=== PATIENT | male | born 1945 | race Caucasian/White ===

== ENCOUNTER 2021-05-01 09:51 | Inpatient (IN) ==
[2021-05-01] MEDS ORDERED: 0.9 % Sodium Chloride 500 ML IVC ONE (09:57)
[2021-05-01 10:24] LABS: Basophils % 0.4 %; Eosinophils # 0.4 K/mcL (0.0-0.6); Eosinophils % 4.3 %; Hematocrit 34.4 % (37.5-50.1); Hemoglobin 10.8 g/dL (12.9-16.9); Immature Granulocytes % 1.4 % (0-4); Lymphocytes # 0.7 K/mcL (0.6-4.6); Lymphocytes % 7.2 %; Mean Corpuscular HGB Conc 31.4 g/dL (31.6-35.5); Mean Corpuscular Hemoglobin 29.3 pg (28.0-33.3); Mean Corpuscular Volume 93.5 fL (83.0-100.0); Mean Platelet Volume 9.2 fL (9.4-12.4); Monocytes # 0.8 K/mcL (0.0-1.3); Monocytes % 9.2 %; Neutrophils # 7.1 K/mcL (1.6-8.9); Platelet Count 254 K/mcL (140-400); Red Blood Count 3.68 M/mcL (4.19-5.50); Red Cell Distribution Width 16.6 % (11.5-14.5); Segmented Neutrophils % 77.5 %; White Blood Count 9.2 K/mcL (4.3-11.1)
[2021-05-01 10:30] LABS: INR 2.3; Prothrombin Time 25.5 Seconds (9.4-12.1)
[2021-05-01 10:39] LABS: Alanine Aminotransferase 58 Units/L (7-52); Albumin 2.9 g/dL (3.5-5.7); Albumin/Globulin Ratio 1.3 (1.1-2.2); Alkaline Phosphatase 130 Units/L (34-104); Aspartate Amino Transferase 36 Units/L (13-39); BUN/Creatinine Ratio 17 (6-26); Blood Urea Nitrogen 18 mg/dL (8-23); Calcium 8.6 mg/dL (8.6-10.3); Carbon Dioxide 32 mEq/L (23-29); Chloride 96 mEq/L (98-107); Globulin 2.3 g/dL (2.4-3.5); Glucose 131 mg/dL (70-105); Osmolality,Calculated 278 (280-300); Sodium 132 mEq/L (136-145); Total Protein 5.2 g/dL (6.4-8.9); eGFR For African Americans > 60 (> 60); eGFR For Non-African Americans > 60 (> 60)
[2021-05-01 10:42] LABS: Troponin I < 0.03 ng/mL (< 0.04)
[2021-05-01 10:55] LABS: Thyroid Stimulating Hormone 9.051 mcIU/mL (0.340-5.600)
[2021-05-01 14:40] LABS: Bilirubin,Urine Negative (Negative); Blood,Urine Negative (Negative); Clarity,Urine Clear (Clear); Color,Urine Yellow (Yellow); Glucose,Urine (UA) Normal (Normal); Ketones,Urine Negative (Negative); Leukocyte Esterase,Urine Negative (Negative); Nitrite,Urine Negative (Negative); Protein,Urine Negative (Neg-Trace); Urobilinogen,Urine Normal (Normal)
[2021-05-01] MEDS ORDERED: Ondansetron 4 MG/2 ML VIAL IVP PRN (17:31)
[2021-05-01] MEDS ORDERED: Acetaminophen 325 MG TABLET PO PRN (17:31)
[2021-05-01] MEDS ORDERED: MOM Conc 10 ML UD.LIQ PO PRN (17:31)
[2021-05-01] MEDS ORDERED: Naloxone 0.4 MG/ML INJ IVP PRN (17:31)
[2021-05-01] MEDS ORDERED: Benzonatate 100 MG CAPSULE PO PRN (17:40)
[2021-05-01] MEDS ORDERED: predniSONE 10 MG TABLET PO SCH (17:45)
[2021-05-01] MEDS ORDERED: Albuterol 2.5 MG/3 ML NEBULIZER IH PRN (17:47)
[2021-05-01] MEDS: Apixaban 5 MG TABLET PO SCH (20:26)
[2021-05-02] MEDS: Folic Acid 1 MG TABLET PO SCH (07:58)
[2021-05-02] MEDS: *HR* Amiodarone 200 MG TABLET PO SCH (07:58)
[2021-05-02] MEDS: Cholecalciferol (D-3) 1,000 UNIT (25MCG) TABLET PO SCH (07:58)
[2021-05-02] MEDS: Apixaban 5 MG TABLET PO SCH ×2 (07:58→19:59)
[2021-05-02] MEDS: Aspirin Enteric Coated 81 MG Tablet PO SCH (07:59)
[2021-05-02] MEDS: Cyanocobalamin (B-12) 1,000 MCG TABLET PO SCH (07:59)
[2021-05-02 08:56] LABS: BUN/Creatinine Ratio 19 (6-26); Blood Urea Nitrogen 17 mg/dL (8-23); Calcium 8.3 mg/dL (8.6-10.3); Carbon Dioxide 30 mEq/L (23-29); Chloride 98 mEq/L (98-107); Glucose 90 mg/dL (70-105); Osmolality,Calculated 279 (280-300); Sodium 134 mEq/L (136-145); eGFR For African Americans > 60 (> 60); eGFR For Non-African Americans > 60 (> 60)
[2021-05-02 11:38] LABS: Basophils # 0.1 K/mcL (0.0-0.2); Basophils % 0.7 %; Eosinophils # 0.4 K/mcL (0.0-0.6); Eosinophils % 4.5 %; Hematocrit 33.2 % (37.5-50.1); Hemoglobin 10.6 g/dL (12.9-16.9); Immature Granulocytes % 0.9 % (0-4); Lymphocytes # 0.8 K/mcL (0.6-4.6); Lymphocytes % 8.8 %; Mean Corpuscular HGB Conc 31.9 g/dL (31.6-35.5); Mean Corpuscular Hemoglobin 29.6 pg (28.0-33.3); Mean Corpuscular Volume 92.7 fL (83.0-100.0); Mean Platelet Volume 10.1 fL (9.4-12.4); Monocytes # 0.7 K/mcL (0.0-1.3); Monocytes % 8.3 %; Neutrophils # 6.8 K/mcL (1.6-8.9); Platelet Count 231 K/mcL (140-400); Red Blood Count 3.58 M/mcL (4.19-5.50); Segmented Neutrophils % 76.8 %; White Blood Count 8.8 K/mcL (4.3-11.1)
[2021-05-02] MEDS: Carbamide Peroxide 150 DROP/15 ML BOTTLE LEFT EAR SCH (12:15)
[2021-05-03] MEDS: Cholecalciferol (D-3) 1,000 UNIT (25MCG) TABLET PO SCH (07:19)
[2021-05-03] MEDS: Aspirin Enteric Coated 81 MG Tablet PO SCH (07:19)
[2021-05-03] MEDS: *HR* Amiodarone 200 MG TABLET PO SCH (07:20)
[2021-05-03] MEDS: Cyanocobalamin (B-12) 1,000 MCG TABLET PO SCH (07:20)
[2021-05-03] MEDS: Carbamide Peroxide 150 DROP/15 ML BOTTLE LEFT EAR SCH (07:20)
[2021-05-03] MEDS: Apixaban 5 MG TABLET PO SCH ×2 (07:20→21:40)
[2021-05-03] MEDS: Folic Acid 1 MG TABLET PO SCH (07:20)
[2021-05-03 07:45] LABS: BUN/Creatinine Ratio 18 (6-26); Blood Urea Nitrogen 16 mg/dL (8-23); Calcium 8.3 mg/dL (8.6-10.3); Carbon Dioxide 31 mEq/L (23-29); Chloride 98 mEq/L (98-107); Glucose 106 mg/dL (70-105); Osmolality,Calculated 282 (280-300); Potassium 4.1 mEq/L (3.5-5.1); Sodium 135 mEq/L (136-145); eGFR For African Americans > 60 (> 60); eGFR For Non-African Americans > 60 (> 60)
[2021-05-03] MEDS: Melatonin 3 MG TABLET PO PRN (21:44)
[2021-05-04 07:49] LABS: Basophils % 0.4 %; Eosinophils # 0.2 K/mcL (0.0-0.6); Eosinophils % 2.3 %; Hematocrit 32.3 % (37.5-50.1); Hemoglobin 10.2 g/dL (12.9-16.9); Immature Granulocytes % 1.2 % (0-4); Lymphocytes # 0.6 K/mcL (0.6-4.6); Lymphocytes % 6.9 %; Mean Corpuscular HGB Conc 31.6 g/dL (31.6-35.5); Mean Corpuscular Hemoglobin 29.1 pg (28.0-33.3); Mean Corpuscular Volume 92.3 fL (83.0-100.0); Mean Platelet Volume 9.8 fL (9.4-12.4); Monocytes # 0.8 K/mcL (0.0-1.3); Monocytes % 9.5 %; Neutrophils # 6.6 K/mcL (1.6-8.9); Platelet Count 238 K/mcL (140-400); Red Cell Distribution Width 17.6 % (11.5-14.5); Segmented Neutrophils % 79.7 %; White Blood Count 8.2 K/mcL (4.3-11.1)
[2021-05-04 08:15] LABS: BUN/Creatinine Ratio 19 (6-26); Blood Urea Nitrogen 18 mg/dL (8-23); Calcium 8.3 mg/dL (8.6-10.3); Carbon Dioxide 32 mEq/L (23-29); Chloride 99 mEq/L (98-107); Glucose 124 mg/dL (70-105); Osmolality,Calculated 285 (280-300); Potassium 4.2 mEq/L (3.5-5.1); Sodium 136 mEq/L (136-145); eGFR For African Americans > 60 (> 60); eGFR For Non-African Americans > 60 (> 60)
[2021-05-04] MEDS: Apixaban 5 MG TABLET PO SCH ×2 (09:37→22:33)
[2021-05-04] MEDS: Cholecalciferol (D-3) 1,000 UNIT (25MCG) TABLET PO SCH (09:37)
[2021-05-04] MEDS: Folic Acid 1 MG TABLET PO SCH (09:37)
[2021-05-04] MEDS: *HR* Amiodarone 200 MG TABLET PO SCH (09:38)
[2021-05-04] MEDS: Cyanocobalamin (B-12) 1,000 MCG TABLET PO SCH (09:38)
[2021-05-04] MEDS: Carbamide Peroxide 150 DROP/15 ML BOTTLE LEFT EAR SCH (09:56)
[2021-05-04 18:30] VITALS: O2SAT 96
[2021-05-04] MEDS: Melatonin 3 MG TABLET PO PRN (22:34)
[2021-05-04] MEDS: Aspirin Enteric Coated 81 MG Tablet PO SCH (23:51)
[2021-05-05 06:25] VITALS: BP 124/74; PULSE 72; RESP 20; TEMP 97.4
[2021-05-05 07:09] LABS: Basophils % 0.4 %; Eosinophils # 0.3 K/mcL (0.0-0.6); Eosinophils % 3.4 %; Hematocrit 30.9 % (37.5-50.1); Hemoglobin 9.8 g/dL (12.9-16.9); Immature Granulocytes % 1.2 % (0-4); Lymphocytes # 0.6 K/mcL (0.6-4.6); Lymphocytes % 7.3 %; Mean Corpuscular HGB Conc 31.7 g/dL (31.6-35.5); Mean Corpuscular Hemoglobin 29.3 pg (28.0-33.3); Mean Corpuscular Volume 92.2 fL (83.0-100.0); Monocytes # 0.9 K/mcL (0.0-1.3); Monocytes % 10.4 %; Neutrophils # 6.3 K/mcL (1.6-8.9); Platelet Count 205 K/mcL (140-400); Red Blood Count 3.35 M/mcL (4.19-5.50); Red Cell Distribution Width 17.7 % (11.5-14.5); Segmented Neutrophils % 77.3 %; White Blood Count 8.2 K/mcL (4.3-11.1)
[2021-05-05] MEDS: Apixaban 5 MG TABLET PO SCH (08:04)
[2021-05-05] MEDS: Cholecalciferol (D-3) 1,000 UNIT (25MCG) TABLET PO SCH (08:05)
[2021-05-05] MEDS: Cyanocobalamin (B-12) 1,000 MCG TABLET PO SCH (08:05)
[2021-05-05] MEDS: Folic Acid 1 MG TABLET PO SCH (08:05)
[2021-05-05] MEDS: *HR* Amiodarone 200 MG TABLET PO SCH (08:05)
[2021-05-05] MEDS: Carbamide Peroxide 150 DROP/15 ML BOTTLE LEFT EAR SCH (08:08)
[2021-05-05 08:14] LABS: BUN/Creatinine Ratio 23 (6-26); Blood Urea Nitrogen 21 mg/dL (8-23); Calcium 8.3 mg/dL (8.6-10.3); Carbon Dioxide 32 mEq/L (23-29); Chloride 98 mEq/L (98-107); Glucose 113 mg/dL (70-105); Osmolality,Calculated 282 (280-300); Potassium 4.5 mEq/L (3.5-5.1); Sodium 134 mEq/L (136-145); eGFR For African Americans > 60 (> 60); eGFR For Non-African Americans > 60 (> 60)
== END 2021-05-05 14:58 | disposition other institution (70) | DRG 641 ==
LOC: EMEROOPIK 09:51 → INPPIK 09:51
PROVIDERS: ADMIT Internal Medicine; ATTEND Internal Medicine

== ENCOUNTER 2021-05-05 14:11 | Inpatient (IN) ==
[2021-05-05] MEDS ORDERED: Benzonatate 100 MG CAPSULE PO PRN (14:18)
[2021-05-05] MEDS ORDERED: Albuterol 2.5 MG/3 ML NEBULIZER IH PRN (14:26)
[2021-05-05] MEDS ORDERED: Naloxone 0.4 MG/ML INJ IVP PRN (14:29)
[2021-05-05] MEDS ORDERED: Ondansetron 4 MG/2 ML VIAL IVP PRN (14:30)
[2021-05-05] MEDS: Apixaban 5 MG TABLET PO SCH (19:53)
[2021-05-06] MEDS: MOM Conc 10 ML UD.LIQ PO PRN (05:13)
[2021-05-06] MEDS: Cyanocobalamin (B-12) 1,000 MCG TABLET PO SCH (07:59)
[2021-05-06] MEDS: Folic Acid 1 MG TABLET PO SCH (07:59)
[2021-05-06] MEDS: Aspirin Enteric Coated 81 MG Tablet PO SCH (08:00)
[2021-05-06] MEDS: Cholecalciferol (D-3) 1,000 UNIT (25MCG) TABLET PO SCH (08:00)
[2021-05-06] MEDS: *HR* Amiodarone 200 MG TABLET PO SCH (08:00)
[2021-05-06] MEDS: Apixaban 5 MG TABLET PO SCH ×2 (08:00→20:31)
[2021-05-06] MEDS: Carbamide Peroxide 150 DROP/15 ML BOTTLE LEFT EAR SCH (08:30)
[2021-05-06] MEDS ORDERED: CYANOCOBALAMIN 500 MCG PO SCH (09:00)
[2021-05-07] MEDS: Cyanocobalamin (B-12) 1,000 MCG TABLET PO SCH (07:55)
[2021-05-07] MEDS: Apixaban 5 MG TABLET PO SCH ×2 (07:55→19:45)
[2021-05-07] MEDS: *HR* Amiodarone 200 MG TABLET PO SCH (07:56)
[2021-05-07] MEDS: Carbamide Peroxide 150 DROP/15 ML BOTTLE LEFT EAR SCH (07:56)
[2021-05-07] MEDS: Folic Acid 1 MG TABLET PO SCH (07:56)
[2021-05-07] MEDS: Cholecalciferol (D-3) 1,000 UNIT (25MCG) TABLET PO SCH (07:56)
[2021-05-07] MEDS: Aspirin Enteric Coated 81 MG Tablet PO SCH (07:56)
[2021-05-08] MEDS ORDERED: LIDOCAINE PO PRN (07:31)
[2021-05-08] MEDS ORDERED: PRILOCAINE PO PRN (07:31)
[2021-05-08] MEDS: Apixaban 5 MG TABLET PO SCH ×2 (07:38→20:40)
[2021-05-08] MEDS: Aspirin Enteric Coated 81 MG Tablet PO SCH (07:38)
[2021-05-08] MEDS: Cholecalciferol (D-3) 1,000 UNIT (25MCG) TABLET PO SCH (07:38)
[2021-05-08] MEDS: *HR* Amiodarone 200 MG TABLET PO SCH (07:38)
[2021-05-08] MEDS: Folic Acid 1 MG TABLET PO SCH (07:39)
[2021-05-08] MEDS: Cyanocobalamin (B-12) 1,000 MCG TABLET PO SCH (07:39)
[2021-05-08] MEDS: Carbamide Peroxide 150 DROP/15 ML BOTTLE LEFT EAR SCH (07:56)
[2021-05-09] MEDS ORDERED: hydrALAZINE 10 MG TABLET PO ONE (06:39)
[2021-05-09] MEDS: Cholecalciferol (D-3) 1,000 UNIT (25MCG) TABLET PO SCH (08:14)
[2021-05-09] MEDS: Cyanocobalamin (B-12) 1,000 MCG TABLET PO SCH (08:14)
[2021-05-09] MEDS: Aspirin Enteric Coated 81 MG Tablet PO SCH (08:16)
[2021-05-09] MEDS: Folic Acid 1 MG TABLET PO SCH (08:16)
[2021-05-09] MEDS: *HR* Amiodarone 200 MG TABLET PO SCH (08:16)
[2021-05-09] MEDS: Apixaban 5 MG TABLET PO SCH ×2 (08:18→19:27)
[2021-05-09] MEDS: Carbamide Peroxide 150 DROP/15 ML BOTTLE LEFT EAR SCH (10:17)
[2021-05-10] MEDS: Aspirin Enteric Coated 81 MG Tablet PO SCH (10:13)
[2021-05-10] MEDS: Cholecalciferol (D-3) 1,000 UNIT (25MCG) TABLET PO SCH (10:14)
[2021-05-10] MEDS: Apixaban 5 MG TABLET PO SCH ×2 (10:15→22:01)
[2021-05-10] MEDS: *HR* Amiodarone 200 MG TABLET PO SCH (10:15)
[2021-05-10] MEDS: Cyanocobalamin (B-12) 1,000 MCG TABLET PO SCH (10:15)
[2021-05-10] MEDS: Folic Acid 1 MG TABLET PO SCH (10:16)
[2021-05-10] MEDS: polyethylene glycoL 3350 17 GM POWD.PACK PO SCH (10:16)
[2021-05-10] MEDS: Carbamide Peroxide 150 DROP/15 ML BOTTLE LEFT EAR SCH (16:35)
[2021-05-11 07:22] LABS: Basophils % 0.4 %; Eosinophils # 0.2 K/mcL (0.0-0.6); Eosinophils % 2.4 %; Hematocrit 31.9 % (37.5-50.1); Hemoglobin 10.1 g/dL (12.9-16.9); Immature Granulocytes % 1.3 % (0-4); Lymphocytes # 0.8 K/mcL (0.6-4.6); Lymphocytes % 8.1 %; Mean Corpuscular HGB Conc 31.7 g/dL (31.6-35.5); Mean Corpuscular Hemoglobin 29.4 pg (28.0-33.3); Mean Corpuscular Volume 92.7 fL (83.0-100.0); Mean Platelet Volume 9.7 fL (9.4-12.4); Monocytes # 0.8 K/mcL (0.0-1.3); Monocytes % 8.6 %; Neutrophils # 7.3 K/mcL (1.6-8.9); Platelet Count 240 K/mcL (140-400); Red Blood Count 3.44 M/mcL (4.19-5.50); Segmented Neutrophils % 79.2 %; White Blood Count 9.3 K/mcL (4.3-11.1)
[2021-05-11 08:08] LABS: BUN/Creatinine Ratio 21 (6-26); Blood Urea Nitrogen 21 mg/dL (8-23); Calcium 8.5 mg/dL (8.6-10.3); Carbon Dioxide 34 mEq/L (23-29); Chloride 99 mEq/L (98-107); Glucose 104 mg/dL (70-105); Osmolality,Calculated 291 (280-300); Potassium 4.2 mEq/L (3.5-5.1); Sodium 139 mEq/L (136-145); eGFR For African Americans > 60 (> 60); eGFR For Non-African Americans > 60 (> 60)
[2021-05-11] MEDS: polyethylene glycoL 3350 17 GM POWD.PACK PO SCH (09:57)
[2021-05-11] MEDS: Cholecalciferol (D-3) 1,000 UNIT (25MCG) TABLET PO SCH (09:58)
[2021-05-11] MEDS: Cyanocobalamin (B-12) 1,000 MCG TABLET PO SCH (09:58)
[2021-05-11] MEDS: *HR* Amiodarone 200 MG TABLET PO SCH (09:58)
[2021-05-11] MEDS: Folic Acid 1 MG TABLET PO SCH (09:58)
[2021-05-11] MEDS: Aspirin Enteric Coated 81 MG Tablet PO SCH (10:00)
[2021-05-11] MEDS: Apixaban 5 MG TABLET PO SCH ×2 (10:24→20:01)
[2021-05-11] MEDS: Carbamide Peroxide 150 DROP/15 ML BOTTLE LEFT EAR SCH (10:25)
[2021-05-12] MEDS: MOM Conc 10 ML UD.LIQ PO PRN (07:39)
[2021-05-12] MEDS: Cholecalciferol (D-3) 1,000 UNIT (25MCG) TABLET PO SCH (07:39)
[2021-05-12] MEDS: Cyanocobalamin (B-12) 1,000 MCG TABLET PO SCH (07:39)
[2021-05-12] MEDS: *HR* Amiodarone 200 MG TABLET PO SCH (07:40)
[2021-05-12] MEDS: Aspirin Enteric Coated 81 MG Tablet PO SCH (07:40)
[2021-05-12] MEDS: polyethylene glycoL 3350 17 GM POWD.PACK PO SCH (07:40)
[2021-05-12] MEDS: Apixaban 5 MG TABLET PO SCH ×2 (07:40→19:53)
[2021-05-12] MEDS: Folic Acid 1 MG TABLET PO SCH (07:40)
[2021-05-12] MEDS: Carbamide Peroxide 150 DROP/15 ML BOTTLE LEFT EAR SCH (07:52)
[2021-05-13] MEDS: Carbamide Peroxide 150 DROP/15 ML BOTTLE LEFT EAR SCH (08:16)
[2021-05-13] MEDS: polyethylene glycoL 3350 17 GM POWD.PACK PO SCH (08:16)
[2021-05-13] MEDS: Folic Acid 1 MG TABLET PO SCH (08:17)
[2021-05-13] MEDS: Apixaban 5 MG TABLET PO SCH ×2 (08:17→19:57)
[2021-05-13] MEDS: Cyanocobalamin (B-12) 1,000 MCG TABLET PO SCH (08:17)
[2021-05-13] MEDS: *HR* Amiodarone 200 MG TABLET PO SCH (08:17)
[2021-05-13] MEDS: Cholecalciferol (D-3) 1,000 UNIT (25MCG) TABLET PO SCH (08:17)
[2021-05-13] MEDS: Aspirin Enteric Coated 81 MG Tablet PO SCH (08:18)
[2021-05-13] MEDS ORDERED: cloNIDine HCL 0.1 MG TABLET PO PRN (14:30)
[2021-05-14] MEDS: Carbamide Peroxide 150 DROP/15 ML BOTTLE LEFT EAR SCH (07:25)
[2021-05-14] MEDS: Aspirin Enteric Coated 81 MG Tablet PO SCH (07:26)
[2021-05-14] MEDS: Cyanocobalamin (B-12) 1,000 MCG TABLET PO SCH (07:26)
[2021-05-14] MEDS: Cholecalciferol (D-3) 1,000 UNIT (25MCG) TABLET PO SCH (07:26)
[2021-05-14] MEDS: polyethylene glycoL 3350 17 GM POWD.PACK PO SCH (07:26)
[2021-05-14] MEDS: Folic Acid 1 MG TABLET PO SCH (07:27)
[2021-05-14] MEDS: *HR* Amiodarone 200 MG TABLET PO SCH (07:27)
[2021-05-14] MEDS: Apixaban 5 MG TABLET PO SCH ×2 (07:27→19:21)
[2021-05-15] MEDS: polyethylene glycoL 3350 17 GM POWD.PACK PO SCH ×2 (07:49→08:01)
[2021-05-15] MEDS: Cyanocobalamin (B-12) 1,000 MCG TABLET PO SCH (07:49)
[2021-05-15] MEDS: Aspirin Enteric Coated 81 MG Tablet PO SCH (07:50)
[2021-05-15] MEDS: *HR* Amiodarone 200 MG TABLET PO SCH (07:50)
[2021-05-15] MEDS: Folic Acid 1 MG TABLET PO SCH (07:50)
[2021-05-15] MEDS: Apixaban 5 MG TABLET PO SCH ×2 (07:50→19:39)
[2021-05-15] MEDS: Cholecalciferol (D-3) 1,000 UNIT (25MCG) TABLET PO SCH (07:50)
[2021-05-15] MEDS: Carbamide Peroxide 150 DROP/15 ML BOTTLE LEFT EAR SCH (08:02)
[2021-05-15] MEDS: Sennosides/Docusate Sodium TABLET PO SCH ×2 (16:08→19:39)
[2021-05-16] MEDS: Cholecalciferol (D-3) 1,000 UNIT (25MCG) TABLET PO SCH (08:00)
[2021-05-16] MEDS: Cyanocobalamin (B-12) 1,000 MCG TABLET PO SCH (08:01)
[2021-05-16] MEDS: Folic Acid 1 MG TABLET PO SCH (08:01)
[2021-05-16] MEDS: Sennosides/Docusate Sodium TABLET PO SCH ×2 (08:02→20:10)
[2021-05-16] MEDS: Aspirin Enteric Coated 81 MG Tablet PO SCH (08:02)
[2021-05-16] MEDS: Apixaban 5 MG TABLET PO SCH ×2 (08:02→20:11)
[2021-05-16] MEDS: *HR* Amiodarone 200 MG TABLET PO SCH (08:02)
[2021-05-16] MEDS: Carbamide Peroxide 150 DROP/15 ML BOTTLE LEFT EAR SCH (10:50)
[2021-05-17] MEDS: Cholecalciferol (D-3) 1,000 UNIT (25MCG) TABLET PO SCH (08:06)
[2021-05-17] MEDS: Cyanocobalamin (B-12) 1,000 MCG TABLET PO SCH (08:07)
[2021-05-17] MEDS: Aspirin Enteric Coated 81 MG Tablet PO SCH (08:08)
[2021-05-17] MEDS: Folic Acid 1 MG TABLET PO SCH (08:08)
[2021-05-17] MEDS: Sennosides/Docusate Sodium TABLET PO SCH ×2 (08:08→20:32)
[2021-05-17] MEDS: *HR* Amiodarone 200 MG TABLET PO SCH (08:09)
[2021-05-17] MEDS: Apixaban 5 MG TABLET PO SCH ×2 (08:09→20:32)
[2021-05-17] MEDS: Carbamide Peroxide 150 DROP/15 ML BOTTLE LEFT EAR SCH (08:15)
[2021-05-18] MEDS: Cyanocobalamin (B-12) 1,000 MCG TABLET PO SCH (09:34)
[2021-05-18] MEDS: Sennosides/Docusate Sodium TABLET PO SCH ×2 (09:34→20:39)
[2021-05-18] MEDS: Aspirin Enteric Coated 81 MG Tablet PO SCH (09:36)
[2021-05-18] MEDS: Cholecalciferol (D-3) 1,000 UNIT (25MCG) TABLET PO SCH (09:36)
[2021-05-18] MEDS: *HR* Amiodarone 200 MG TABLET PO SCH (09:37)
[2021-05-18] MEDS: Folic Acid 1 MG TABLET PO SCH (09:37)
[2021-05-18] MEDS: Apixaban 5 MG TABLET PO SCH ×2 (09:38→20:41)
[2021-05-18] MEDS: Carbamide Peroxide 150 DROP/15 ML BOTTLE LEFT EAR SCH (10:14)
[2021-05-19] MEDS: Cholecalciferol (D-3) 1,000 UNIT (25MCG) TABLET PO SCH (07:45)
[2021-05-19] MEDS: Cyanocobalamin (B-12) 1,000 MCG TABLET PO SCH (07:50)
[2021-05-19] MEDS: Folic Acid 1 MG TABLET PO SCH (07:52)
[2021-05-19] MEDS: *HR* Amiodarone 200 MG TABLET PO SCH (07:53)
[2021-05-19] MEDS: Aspirin Enteric Coated 81 MG Tablet PO SCH (07:54)
[2021-05-19] MEDS: Sennosides/Docusate Sodium TABLET PO SCH ×2 (07:55→20:05)
[2021-05-19] MEDS: Carbamide Peroxide 150 DROP/15 ML BOTTLE LEFT EAR SCH (08:00)
[2021-05-19] MEDS: Apixaban 5 MG TABLET PO SCH ×2 (08:02→20:04)
[2021-05-19] MEDS: Melatonin 3 MG TABLET PO PRN (20:05)
[2021-05-20] MEDS: Cholecalciferol (D-3) 1,000 UNIT (25MCG) TABLET PO SCH (07:43)
[2021-05-20] MEDS: Folic Acid 1 MG TABLET PO SCH (07:44)
[2021-05-20] MEDS: Apixaban 5 MG TABLET PO SCH ×2 (07:45→20:05)
[2021-05-20] MEDS: Cyanocobalamin (B-12) 1,000 MCG TABLET PO SCH (07:46)
[2021-05-20] MEDS: Sennosides/Docusate Sodium TABLET PO SCH (07:47)
[2021-05-20] MEDS: Aspirin Enteric Coated 81 MG Tablet PO SCH (07:48)
[2021-05-20] MEDS: *HR* Amiodarone 200 MG TABLET PO SCH (07:48)
[2021-05-20] MEDS: Carbamide Peroxide 150 DROP/15 ML BOTTLE LEFT EAR SCH (07:52)
[2021-05-20] MEDS: Acetaminophen 325 MG TABLET PO PRN (09:37)
[2021-05-20] MEDS: Melatonin 3 MG TABLET PO PRN (20:05)
[2021-05-21] MEDS: Potassium Chloride Elixir 20 MEQ/15 ML UDC PO SCH (08:41)
[2021-05-21] MEDS: Apixaban 5 MG TABLET PO SCH ×2 (08:41→21:00)
[2021-05-21] MEDS: Aspirin Enteric Coated 81 MG Tablet PO SCH (08:43)
[2021-05-21] MEDS: *HR* Amiodarone 200 MG TABLET PO SCH (08:44)
[2021-05-21] MEDS: Folic Acid 1 MG TABLET PO SCH (08:45)
[2021-05-21] MEDS: Cyanocobalamin (B-12) 1,000 MCG TABLET PO SCH (08:45)
[2021-05-21] MEDS: Cholecalciferol (D-3) 1,000 UNIT (25MCG) TABLET PO SCH (08:46)
[2021-05-21] MEDS: Carbamide Peroxide 150 DROP/15 ML BOTTLE LEFT EAR SCH (09:05)
[2021-05-21] MEDS: GuaiFENesin/Dextromethorphan TABLET PO SCH ×2 (11:58→20:59)
[2021-05-21] MEDS ORDERED: Ipratropium/Albuterol Neb 3 ML IH PRN (12:04)
[2021-05-22] MEDS: Folic Acid 1 MG TABLET PO SCH (08:13)
[2021-05-22] MEDS: Cyanocobalamin (B-12) 1,000 MCG TABLET PO SCH (08:13)
[2021-05-22] MEDS: Cholecalciferol (D-3) 1,000 UNIT (25MCG) TABLET PO SCH (08:14)
[2021-05-22] MEDS: GuaiFENesin/Dextromethorphan TABLET PO SCH ×2 (08:15→21:05)
[2021-05-22] MEDS: *HR* Amiodarone 200 MG TABLET PO SCH (08:15)
[2021-05-22] MEDS: Aspirin Enteric Coated 81 MG Tablet PO SCH (08:16)
[2021-05-22] MEDS: Apixaban 5 MG TABLET PO SCH ×2 (08:16→21:05)
[2021-05-22] MEDS: Potassium Chloride Elixir 20 MEQ/15 ML UDC PO SCH (08:17)
[2021-05-22] MEDS: Carbamide Peroxide 150 DROP/15 ML BOTTLE LEFT EAR SCH (10:17)
[2021-05-22] MEDS: Melatonin 3 MG TABLET PO PRN (21:05)
[2021-05-23] MEDS: Aspirin Enteric Coated 81 MG Tablet PO SCH (07:59)
[2021-05-23] MEDS: Cyanocobalamin (B-12) 1,000 MCG TABLET PO SCH (08:00)
[2021-05-23] MEDS: GuaiFENesin/Dextromethorphan TABLET PO SCH ×2 (08:01→19:59)
[2021-05-23] MEDS: Cholecalciferol (D-3) 1,000 UNIT (25MCG) TABLET PO SCH (08:01)
[2021-05-23] MEDS: Folic Acid 1 MG TABLET PO SCH (08:01)
[2021-05-23] MEDS: *HR* Amiodarone 200 MG TABLET PO SCH (08:01)
[2021-05-23] MEDS: Apixaban 5 MG TABLET PO SCH ×2 (08:01→20:00)
[2021-05-23] MEDS: Carbamide Peroxide 150 DROP/15 ML BOTTLE LEFT EAR SCH (08:02)
[2021-05-23] MEDS: Potassium Chloride Elixir 20 MEQ/15 ML UDC PO SCH (08:02)
[2021-05-23] MEDS: Acetaminophen 325 MG TABLET PO PRN ×2 (09:55→20:00)
[2021-05-23] MEDS: Melatonin 3 MG TABLET PO PRN (20:00)
[2021-05-24] MEDS: Cyanocobalamin (B-12) 1,000 MCG TABLET PO SCH (07:48)
[2021-05-24] MEDS: Folic Acid 1 MG TABLET PO SCH (07:50)
[2021-05-24] MEDS: Apixaban 5 MG TABLET PO SCH ×2 (07:50→21:35)
[2021-05-24] MEDS: Cholecalciferol (D-3) 1,000 UNIT (25MCG) TABLET PO SCH (07:51)
[2021-05-24] MEDS: GuaiFENesin/Dextromethorphan TABLET PO SCH ×2 (07:51→21:35)
[2021-05-24] MEDS: Sennosides/Docusate Sodium TABLET PO SCH ×2 (07:51→21:35)
[2021-05-24] MEDS: *HR* Amiodarone 200 MG TABLET PO SCH (07:51)
[2021-05-24] MEDS: Aspirin Enteric Coated 81 MG Tablet PO SCH (07:51)
[2021-05-24] MEDS: Potassium Chloride Elixir 20 MEQ/15 ML UDC PO SCH (07:52)
[2021-05-24] MEDS: Carbamide Peroxide 150 DROP/15 ML BOTTLE LEFT EAR SCH (07:52)
[2021-05-24] MEDS: Melatonin 3 MG TABLET PO PRN (21:35)
[2021-05-25] MEDS: Cyanocobalamin (B-12) 1,000 MCG TABLET PO SCH (08:28)
[2021-05-25] MEDS: Cholecalciferol (D-3) 1,000 UNIT (25MCG) TABLET PO SCH (08:28)
[2021-05-25] MEDS: Sennosides/Docusate Sodium TABLET PO SCH ×2 (08:28→19:42)
[2021-05-25] MEDS: *HR* Amiodarone 200 MG TABLET PO SCH (08:28)
[2021-05-25] MEDS: Aspirin Enteric Coated 81 MG Tablet PO SCH (08:28)
[2021-05-25] MEDS: Folic Acid 1 MG TABLET PO SCH (08:28)
[2021-05-25] MEDS: GuaiFENesin/Dextromethorphan TABLET PO SCH ×2 (08:30→19:43)
[2021-05-25] MEDS: Apixaban 5 MG TABLET PO SCH ×2 (08:30→19:43)
[2021-05-25] MEDS: Potassium Chloride Elixir 20 MEQ/15 ML UDC PO SCH (08:31)
[2021-05-25] MEDS: Carbamide Peroxide 150 DROP/15 ML BOTTLE LEFT EAR SCH (08:34)
[2021-05-25 09:01] LABS: Basophils % 0.3 %; Eosinophils # 0.3 K/mcL (0.0-0.6); Eosinophils % 2.8 %; Hematocrit 32.8 % (37.5-50.1); Hemoglobin 10.4 g/dL (12.9-16.9); Lymphocytes # 0.9 K/mcL (0.6-4.6); Lymphocytes % 9.3 %; Mean Corpuscular HGB Conc 31.7 g/dL (31.6-35.5); Mean Corpuscular Hemoglobin 29.9 pg (28.0-33.3); Mean Corpuscular Volume 94.3 fL (83.0-100.0); Mean Platelet Volume 10.1 fL (9.4-12.4); Monocytes # 0.8 K/mcL (0.0-1.3); Monocytes % 8.5 %; Neutrophils # 7.1 K/mcL (1.6-8.9); Platelet Count 239 K/mcL (140-400); Red Blood Count 3.48 M/mcL (4.19-5.50); Segmented Neutrophils % 78.1 %; White Blood Count 9.1 K/mcL (4.3-11.1)
[2021-05-25 09:23] LABS: BUN/Creatinine Ratio 18 (6-26); Blood Urea Nitrogen 21 mg/dL (8-23); Calcium 8.7 mg/dL (8.6-10.3); Carbon Dioxide 32 mEq/L (23-29); Chloride 99 mEq/L (98-107); Glucose 101 mg/dL (70-105); Osmolality,Calculated 287 (280-300); Sodium 137 mEq/L (136-145); eGFR For African Americans > 60 (> 60); eGFR For Non-African Americans > 60 (> 60)
[2021-05-25 19:13] VITALS: O2SAT 98
[2021-05-25] MEDS: Acetaminophen 325 MG TABLET PO PRN (19:43)
[2021-05-26 06:43] VITALS: BP 147/97; PULSE 90; RESP 18; TEMP 97.8
[2021-05-26] MEDS: Cholecalciferol (D-3) 1,000 UNIT (25MCG) TABLET PO SCH (08:14)
[2021-05-26] MEDS: Apixaban 5 MG TABLET PO SCH (08:15)
[2021-05-26] MEDS: GuaiFENesin/Dextromethorphan TABLET PO SCH (08:15)
[2021-05-26] MEDS: Aspirin Enteric Coated 81 MG Tablet PO SCH (08:15)
[2021-05-26] MEDS: Sennosides/Docusate Sodium TABLET PO SCH (08:15)
[2021-05-26] MEDS: Potassium Chloride Elixir 20 MEQ/15 ML UDC PO SCH (08:15)
[2021-05-26] MEDS: Cyanocobalamin (B-12) 1,000 MCG TABLET PO SCH (08:15)
[2021-05-26] MEDS: *HR* Amiodarone 200 MG TABLET PO SCH (08:16)
[2021-05-26] MEDS: Folic Acid 1 MG TABLET PO SCH (08:16)
[2021-05-26] MEDS: Carbamide Peroxide 150 DROP/15 ML BOTTLE LEFT EAR SCH (08:18)
== END 2021-05-26 15:15 | disposition home health service (06) | DRG 948 ==
LOC: INPPIK 15:00
PROVIDERS: ADMIT Family Medicine; ATTEND Family Medicine